=== PATIENT | male | born 1980 | race Two or more races ===

== ENCOUNTER 2025-02-16 13:02 | Inpatient (IN) | payer OTHER, MEDICAID ==
[~2025-02-16] VITALS: Ht 185.4 cm; Wt 91.2 kg
--- NOTE | 2025-02-16 13:07 | ED.PDOC ---
Sickle cell HPI Comments This is a 44 year old male VARSHAA presenting to the ED with chief complaint of body pains. Patient reports that he is currently living in a rehabilitation center after having right leg surgery performed with hardware in place. Patient relays that he has history of Sickle Cell Anemia and believes he is having a Sickle Cell crisis. Patient states that he is experiencing body pains with associated nasal congestion, SOB, and chest pain. Patient denies any N/V, dizziness, headache, fever, or chills. Time Seen by MD: 13:05 Reviewed Notes: Nurses Notes, Campaign Worker Notes, Medications, Allergies Information Source: Patient, Emergency Med Personnel Mode of Arrival: EMS Severity: Moderate Timing: Hours Duration: Since onset Prehospital treatment: None Onset: Spontaneous Symptoms: Pain, Shortness of breath Location of pain: Chest, Abdomen, Back, Extremity History of: Pain, Shortness of breath Past Medical History PAST MEDICAL HISTORY: COPD Past Medical History (Other): Sickle cell, DVT Surgical History (Other): Rt leg surgery Family History Family History: Reviewed,noncontributory to illness Social History Smoker: Cigarettes Alcohol: Denies ETOH Use Drugs: Marijuana Lives In: Home Constitutional: reports: others (Body pains); denies: chills, diaphoresis, fatigue, fever, malaise, sweats, weakness EENTM: reports: nose congestion; denies: blurred vision, double vision, ear bleeding, ear discharge, ear drainage, ear pain, ear ringing, eye pain, eye redness, hearing loss, mouth pain, mouth swelling, nasal discharge, nose bleeding, nose pain, photophobia, tearing, throat pain, throat swelling, voice changes, others Respiratory: reports: shortness of breath; denies: cough, hemoptysis, orthopnea, SOB at rest, SOB with excertion, stridor, wheezing, others Cardiovascular: denies: chest pain, dizzy spells, diaphoresis, Dyspnea on exertion, edema, irregular heart beat, left arm pain, lightheadedness, palpitations, PND, syncope, others Gastrointestinal: denies: abdomen distended, abdominal pain, blood streaked bowels, constipated, diarrhea, dysphagia, difficulty swallowing, hematemesis, melena, nausea, poor appetite, poor fluid intake, rectal bleeding, rectal pain, vomiting, others Genitourinary: denies: burning, dysuria, flank pain, frequency, hematuria, incontinence, penile discharge, penile sore, pain, testicle pain, testicle swelling, urgency, others Neurological: denies: dizziness, fainting, headache, left sided numbness, left sided weakness, numbness, paresthesia, pre-existing deficit, right sided numbness, right sided weakness, seizure, speech problems, tingling, tremors, weakness, others Musculoskeletal: denies: back pain, gout, joint pain, joint swelling, muscle pain, muscle stiffness, neck pain, others Integumetry: denies: bruises, change in color, change in hair/nails, dryness, laceration, lesions, lumps, rash, wounds, others Allergic/Immunocompromised: denies: Difficulty Healing, Frequent Infections, Hives, Itching, others Hematologic/Lymphatic: denies: anemia, blood clots, easy bleeding, easy bruising, swollen glands, others Endocrine: denies: excessive hunger, excessive sweating, excessive thirst, excessive urination, flushing, intolerance to cold, intolerance to heat, unexplained weight gain, unexplained weight loss, others Psychiatric: denies: anxiety, bipolar disorder, depression, hopeless, panic disorder, schizophrenia, sleepless, suicidal, others All Other Systems: Reviewed and Negative Physical Exam General Appearance: Moderate Distress HEENT: Normal ENT Inspection, Pharynx Normal, TMs Normal Neck: Full Range of Motion, Non-Tender, Normal, Normal Inspection Respiratory: Chest Non-Tender, Lungs Clear, No Accessory Muscle Use, No Respiratory Distress, Normal Breath Sounds Cardiovascular: No Edema, No JVD, No Murmur, No Gallop, Normal Peripheral Pulses, Regular Rate/Rhythm Breast Exam: Deferred Gastrointestinal: No Organomegaly, Non Tender, No Pulsatile Mass, Normal Bowel Sounds, Soft Genitalia: Deferred Pelvic: Deferred Rectal: Deferred Extremities: No calf tenderness, Normal capillary refill, Normal inspection, Normal range of motion, Non-tender, No pedal edema Musculoskeletal : Apperance: Normal Neurologic: Alert, store facility technician II-XII nml as Tested, No Motor Deficits, Normal Affect, Normal Mood, No Sensory Deficits Cerebellar Function: NOT DONE Reflexes: NOT DONE Skin: Dry, Normal Color, Warm Peripheral Pulses: 3+ Radial (R), 3+ Radial (L) Lymphatic: No Adenopathy Was a procedure done? Was a procedure done?: No Sickle cell Differential Dx Differential Diagnosis: Vasoocculsive Crisis X-Ray, Labs, Meds, VS Vital Signs Date Time Temp Pulse Resp B/P (MAP) Pulse Ox O2 Delivery O2 Flow Rate FiO2 02/16/25 14:55 75 20 144/86 02/16/25 14:45 75 14 144/86 (105) 95 02/16/25 14:44 75 14 144/86 02/16/25 13:51 98.6 85 18 154/109 (124) 96 98.6 02/16/25 13:51 85 18 96 Room Air 02/16/25 13:49 85 18 154/109 02/16/25 13:05 98.9 85 20 157/122 (134) 98 98.9 Lab Test 02/16/25 13:32 Range/Units White Blood Count 10.8 4.4-10.8 10^3/uL Red Blood Count 5.10 4.5-5.90 10^6/uL Hemoglobin 14.4 13.5-17.5 g/dL Hematocrit 43.1 41.0-53.0 % Mean Corpuscular Volume 84.5 80.0-100.0 fL Mean Corpuscular Hemoglobin 28.2 28.0-32.0 pg Mean Corpuscular Hemoglobin Concent 33.4 32.0-36.0 g/dL Red Cell Distribution Width 16.8 H 11.8-14.3 % Platelet Count 398 140-450 10^3/uL Mean Platelet Volume 7.7 6.9-10.8 fL Neutrophils (%) (Auto) 37.0-80.0 % Lymphocytes (%) (Auto) 10.0-50.0 % Monocytes (%) (Auto) 0.0-12.0 % Eosinophils (%) (Auto) 0.0-7.0 % Basophils (%) (Auto) 0.0-2.0 % Neutrophils # (Auto) 1.6-8.6 10 ^3/uL Lymphocytes # (Auto) 0.4-5.4 10 ^3/uL Monocytes # (Auto) 0-1.3 10 ^3/uL Differential Total Cells Counted 100.0 100 Neutrophils % (Manual) 48 37.0-80.0 Band Neutrophils % (Manual) 0 Lymphocytes % (Manual) 29 10.0-50.0 Monocytes % (Manual) 7 0-12 Eosinophils % (Manual) 16 H 0-7 Basophils % (Manual) 0 0.0-2.0 Metamyelocytes % (manual) 0 Myelocytes % (Manual) 0 Promyelocytes % (Manual) 0 Blast Cells % (Manual) 0 Reactive Lymphocytes 0 Platelet Estimate Adequate Poikilocytosis (manual) Slight Anisocytosis (manual) Slight Tear Drop Cells Few Reticulocyte Count (auto) 2.51 H 0.5-1.5 % Sodium Level 143 136-145 mmol/L Potassium Level 3.7 3.5-5.1 mmol/L Chloride Level 110 H 98-107 mmol/L Carbon Dioxide Level 24 20-31 mmol/L Anion Gap 9 5-15 Blood Urea Nitrogen 8 L 9-23 mg/dL Creatinine 1.21 0.700-1.30 mg/dL Glomerular Filtration Rate Calc 76 >90 mL/min BUN/Creatinine Ratio 6.6 L 10.0-20.0 Serum Glucose 80 74-106 mg/dL Calcium Level 10.2 8.7-10.4 mg/dL Current Medications Medications (Trade) Dose Ordered Sig/Michael Route Start Time Stop Time Status Last Admin Sodium Chloride 1,000 ml @ 1,000 mls/hr Q1H ONCE IV 02/16/25 13:15 02/16/25 14:14 DC 02/16/25 13:40 Sodium Chloride 1,000 ml @ 150 mls/hr Q6H40M ONCE IV 02/16/25 13:15 02/16/25 19:54 02/16/25 13:40 Ondansetron HCl (Zofran) 4 mg ONCE ONCE IV 02/16/25 13:15 02/16/25 13:16 DC 02/16/25 13:50 Hydromorphone HCl (Dilaudid Injection) 0.5 mg ONCE ONCE IV 02/16/25 13:15 02/16/25 13:16 DC 02/16/25 13:49 Ketorolac Tromethamine (Toradol Injection) 30 mg ONCE ONCE IV 02/16/25 13:45 02/16/25 13:46 DC 02/16/25 13:48 Diphenhydramine HCl (Benadryl Injection) 25 mg ONCE ONCE IV 02/16/25 13:45 02/16/25 13:46 DC 02/16/25 13:48 Hydromorphone HCl (Dilaudid Injection) 1 mg ONCE ONCE IV 02/16/25 14:45 02/16/25 14:46 DC 02/16/25 14:55 Sodium Chloride 1,000 ml @ 1,000 mls/hr Q1H ONCE IV 02/16/25 14:45 02/16/25 15:44 02/16/25 14:48 Chest XR: IMPRESSION: 1. No acute cardiopulmonary pathology Patient alert. Complaining of pain all over. Vitals stable. Answering questions. WBC within normal limits. Blood pressure elevated. Possibly from pain. Reticulocyte count elevated. Establish intravenous access. Was given fluids. Was given pain medication. Was given Zofran. Recently had surgery at [facility] for his right lower extremity. Able to move all his extremities. Explained to the patient. Continue monitoring. Images Reviewed?: Images reviewed and evaluated by me Time of 1ST Reevaluation: 14:04 Reevaluation 1ST: Unchanged Patient Education/Counseling: Diagnosis, Treatment Family Education/Counseling: No Family Present Departure 1 Departure Time of Disposition: 15:04 Impression: Primary Impression: Sickle cell crisis Disposition: ADMITTED INPATIENT Admit to: Med Surg Condition: Guarded Critical Care Note Critical Care Time?: Yes (90 min-critical care time only) Critical care comment: Continues to have pain Stability Stability form required: No Heart Score Heart Score: Heart Score Response (Comments) Value History N/A 0 EKG N/A 0 Age N/A 0 Risk Factors N/A 0 Troponin N/A 0 Total 0 I personally scribed for MANSI FUNES MD ([email or web address]) on 02/16/25 at 13:07. Electronically submitted by Francis Abarca ([email or web address]). I personally scribed for MANSI FUNES MD ([email or web address]) on 02/16/25 at 14:21. Electronically submitted by Francis Abarca ([email or web address]). MANSI FUNES MD Feb 16, 2025 13:07
[2025-02-16] MEDS ORDERED: MORPHINE SULFATE 4 MG/ML SYR/VIAL IV ONE (13:15)
[2025-02-16] MEDS: SODIUM CHLORIDE 0.9% 1,000 ML IV ONE ×3 (13:40→14:48)
[2025-02-16] MEDS ORDERED: ACETAMINOPHEN IV 1000 MG/100ML (10MG/ML) IV PRN (13:45)
[2025-02-16] MEDS: KETOROLAC TROMETH 30 MG/ML 1ML VIAL IV ONE (13:48)
[2025-02-16] MEDS: diphenhdrAMINE HCL 50 MG/1 ML VL IV ONE (13:48)
[2025-02-16] MEDS: HYDROmorphone HCL 2 MG/ML VL/or syr IV ONE ×4 (13:49→16:42)
[2025-02-16] MEDS: ONDANSETRON HCL 4 MG/2 ML VIAL IV ONE ×2 (13:50→16:42)
--- NOTE | 2025-02-16 13:51 | DVH ---
X-ray portable chest CLINICAL INDICATION: sob FINDINGS: Heart size is normal. No infiltrates or effusions. No bony thoracic abnormalities. IMPRESSION: 1. No acute cardiopulmonary pathology
[2025-02-16 13:58] LABS: Hematocrit 43.1 % (41.0-53.0); Hemoglobin 14.4 g/dL (13.5-17.5); Mean Corpuscular Hemoglobin 28.2 pg (28.0-32.0); Mean Corpuscular Volume 84.5 fL (80.0-100.0)
[2025-02-16 14:00] LABS: Potassium 3.7 mmol/L (3.5-5.1); Sodium 143 mmol/L (136-145)
[2025-02-16 14:01] LABS: Anion Gap 9 (5-15); Calcium 10.2 mg/dL (8.7-10.4); Carbon Dioxide 24 mmol/L (20-31)
[2025-02-16 14:02] LABS: Chloride 110 mmol/L (98-107)
[2025-02-16 14:06] LABS: BUN/Creatinine Ratio 6.6 (10.0-20.0); Glucose 80 mg/dL (74-106)
[2025-02-16 14:08] LABS: Blood Urea Nitrogen 8 mg/dL (9-23)
[2025-02-16 14:13] LABS: Anisocytosis Slight; Total Cells Counted 100.0 (100)
[2025-02-16 14:14] LABS: Tear Drop Cells FEW
[2025-02-16] MEDS: ONDANSETRON HCL 4 MG/2 ML VIAL ONE (16:39)
[2025-02-16] MEDS ORDERED: ONDANSETRON HCL 4 MG/2 ML VIAL IV PRN ×2 (17:30→19:00)
[2025-02-16] MEDS ORDERED: HYDROmorphone HCL 2 MG/ML VL/or syr IV SCH (18:00)
--- NOTE | 2025-02-16 18:49 | DVHHP2 ---
Admitting Diagnosis: Sickle cell crisis History of Present Illness This is a 44 year old male CARLOS presenting to the ED with chief complaint of body pains. Patient reports that he is currently living in a rehabilitation center after having right leg surgery performed with hardware in place. Patient relays that he has history of Sickle Cell Anemia and believes he is having a Sickle Cell crisis. Patient states that he is experiencing body pains with associated nasal congestion, SOB, and chest pain. Patient denies any N/V, dizziness, headache, fever, or chills. PAST MEDICAL HISTORY: COPD Past Medical History (Other): Sickle cell, DVT Surgical History (Other): Rt leg surgery Family History Family History: Reviewed,noncontributory to illness Social History Smoker: Cigarettes Alcohol: Denies ETOH Use Drugs: Marijuana Lives In: Home Allergies: Coded Allergies: Morphine (Verified Allergy, Unknown, 02/16/25) Current Medications Current Medications Medications (Trade) Dose Ordered Sig/Michael Route PRN Reason Start Time Stop Time Status Last Admin Acetaminophen (Ofirmev) 1,000 mg [id number] PRN IV PAIN SCALE 1-3 OR TEMP>100.4 02/16/25 13:45 02/16/25 13:46 DC Hydromorphone HCl (Dilaudid Injection) 2 mg Q2HR IV 02/16/25 18:00 02/16/25 17:41 DC Ondansetron HCl (Zofran) 4 mg Q4HPRN PRN IV NAUSEA / VOMITING 02/16/25 17:30 Diphenhydramine HCl (Benadryl Injection) 25 mg Q6HPRN PRN IV FOR ITCHING 02/16/25 17:30 Hydromorphone HCl (Dilaudid Injection) 2 mg Q2HR IV 02/16/25 18:42 Vital Signs Vital Signs Date Time Temp Pulse Resp B/P (MAP) Pulse Ox O2 Delivery O2 Flow Rate FiO2 02/16/25 17:28 83 12 147/91 02/16/25 17:27 96 02/16/25 15:36 98.4 98.4 02/16/25 13:51 Room Air Physical Exam gen - 44 y.o. man, lying in bed with scratching HEENT: AT/NC Heart: RRR Lung: CTA b/l Abd: soft, non-tender, non-distended Msk: no edema or cyanosis Neuro: Aox3, no focal deficit SEPSIS Sepsis Screen Date sepsis recognized/suspect: Feb 16, 2025 Time Sepsis recognized/suspect: 1309 Recent Procedure: No On Antibiotic Therapy: No Respiratory Rate >20: No Heart Rate >90: No Temp<36 C (96.8 F) or >38.3 C: No SBP <90 or MAP <65 mmHG: No New Acute Mental Status Change: No Is the patient on CPAP, BIPAP,: No Physician Orders Chest Portable (02/16/25 13:04) Urinalysis (02/16/25 13:04) Sodium Chloride 0.9% (02/16/25 13:15) Saline Lock (02/16/25 13:24) Ondansetron Hcl (Zofran) (02/16/25 17:30) Diphenhdramine Injection (Benadryl Injec (02/16/25 17:30) Hydromorphone Injection (Dilaudid Inject (02/16/25 18:42) Drug Screen (02/16/25 18:38) Vital Signs Date Time Temp Pulse Resp B/P (MAP) Pulse Ox O2 Delivery O2 Flow Rate FiO2 02/16/25 17:28 83 12 147/91 02/16/25 17:27 83 12 147/91 (109) 96 02/16/25 16:42 62 25 167/104 02/16/25 15:36 98.4 74 12 123/67 (85) 99 98.4 02/16/25 15:35 74 12 123/67 02/16/25 14:55 75 20 144/86 02/16/25 14:45 75 14 144/86 (105) 95 02/16/25 14:44 75 14 144/86 02/16/25 13:51 98.6 85 18 154/109 (124) 96 98.6 02/16/25 13:51 85 18 96 Room Air 02/16/25 13:49 85 18 154/109 02/16/25 13:05 98.9 85 20 157/122 (134) 98 98.9 Laboratory Tests Test 02/16/25 13:32 White Blood Count 10.8 10^3/uL (4.4-10.8) Medications Medications Dose Ordered Sig/Michael Route Start Time Stop Time Status Last Admin Dose Admin Diphenhydramine HCl 25 mg ONCE ONCE IV 02/16/25 13:45 02/16/25 13:46 DC 02/16/25 13:48 Hydromorphone HCl 0.5 mg ONCE ONCE IV 02/16/25 13:15 02/16/25 13:16 DC 02/16/25 13:49 Hydromorphone HCl 1 mg ONCE ONCE IV 02/16/25 14:45 02/16/25 14:46 DC 02/16/25 14:55 Hydromorphone HCl 3 mg ONCE ONCE IV 02/16/25 16:45 02/16/25 16:46 DC 02/16/25 16:42 Ketorolac Tromethamine 30 mg ONCE ONCE IV 02/16/25 13:45 02/16/25 13:46 DC 02/16/25 13:48 Ondansetron HCl 4 mg ONCE ONCE IV 02/16/25 13:15 02/16/25 13:16 DC 02/16/25 13:50 Ondansetron HCl 4 mg ONCE ONCE IV 02/16/25 16:45 02/16/25 16:46 DC 02/16/25 16:42 Sodium Chloride 1,000 ml @ 150 mls/hr Q6H40M ONCE IV 02/16/25 13:15 02/16/25 19:54 02/16/25 13:40 Sodium Chloride 1,000 ml @ 1,000 mls/hr Q1H ONCE IV 02/16/25 13:15 02/16/25 14:14 DC 02/16/25 13:40 Sodium Chloride 1,000 ml @ 1,000 mls/hr Q1H ONCE IV 02/16/25 14:45 02/16/25 15:44 DC 02/16/25 14:48 Results Labs Test 02/16/25 13:32 Range/Units White Blood Count 10.8 4.4-10.8 10^3/uL Red Blood Count 5.10 4.5-5.90 10^6/uL Hemoglobin 14.4 13.5-17.5 g/dL Hematocrit 43.1 41.0-53.0 % Mean Corpuscular Volume 84.5 80.0-100.0 fL Mean Corpuscular Hemoglobin 28.2 28.0-32.0 pg Mean Corpuscular Hemoglobin Concent 33.4 32.0-36.0 g/dL Red Cell Distribution Width 16.8 H 11.8-14.3 % Platelet Count 398 140-450 10^3/uL Mean Platelet Volume 7.7 6.9-10.8 fL Neutrophils (%) (Auto) 37.0-80.0 % Lymphocytes (%) (Auto) 10.0-50.0 % Monocytes (%) (Auto) 0.0-12.0 % Eosinophils (%) (Auto) 0.0-7.0 % Basophils (%) (Auto) 0.0-2.0 % Neutrophils # (Auto) 1.6-8.6 10 ^3/uL Lymphocytes # (Auto) 0.4-5.4 10 ^3/uL Monocytes # (Auto) 0-1.3 10 ^3/uL Differential Total Cells Counted 100.0 100 Neutrophils % (Manual) 48 37.0-80.0 Band Neutrophils % (Manual) 0 Lymphocytes % (Manual) 29 10.0-50.0 Monocytes % (Manual) 7 0-12 Eosinophils % (Manual) 16 H 0-7 Basophils % (Manual) 0 0.0-2.0 Metamyelocytes % (manual) 0 Myelocytes % (Manual) 0 Promyelocytes % (Manual) 0 Blast Cells % (Manual) 0 Reactive Lymphocytes 0 Platelet Estimate Adequate Poikilocytosis (manual) Slight Anisocytosis (manual) Slight Tear Drop Cells Few Reticulocyte Count (auto) 2.51 H 0.5-1.5 % Sodium Level 143 136-145 mmol/L Potassium Level 3.7 3.5-5.1 mmol/L Chloride Level 110 H 98-107 mmol/L Carbon Dioxide Level 24 20-31 mmol/L Anion Gap 9 5-15 Blood Urea Nitrogen 8 L 9-23 mg/dL Creatinine 1.21 0.700-1.30 mg/dL Glomerular Filtration Rate Calc 76 >90 mL/min BUN/Creatinine Ratio 6.6 L 10.0-20.0 Serum Glucose 80 74-106 mg/dL Calcium Level 10.2 8.7-10.4 mg/dL Primary Diagnosis Sickle cell crisis Eosinophilia Plan pt states he has diffuse pain. vss, no tachycardia, no left shifts check ua for eosinophilia diffuse scratch likely due to elevated eosinophilia check urine drug study ivf pain control reticulocyte count at 2.5% trend reticulocyte count, crp, procal pain control anti-ematic full code lovenox for dvt ppx no gi ppx needed Plan discussed with: Patient Problems List: (1) Sickle cell crisis Status: Acute Date of Service: Feb 16, 2025 Billing Provider: ACE ROYAL MD Common Visit Codes: [id number] INP/OBS CARE (MOD) ACE ROYAL MD Feb 16, 2025 18:49
[2025-02-16] MEDS ORDERED: HYDROcodone-ACET 5/325MG TAB PO PRN (19:00)
[2025-02-16] MEDS ORDERED: ACETAMINOPHEN 325 MG TAB PO PRN (19:00)
[2025-02-16] MEDS ORDERED: DOCUSATE SOD 100 MG CAP PO PRN (19:00)
[2025-02-16] MEDS ORDERED: HYDROmorphone HCL 2 MG/ML VL/or syr IV PRN (19:00)
[2025-02-16] MEDS: HYDROmorphone HCL 2 MG/ML VL/or syr IV SCH ×2 (21:00→23:17)
[2025-02-16] MEDS: diphenhdrAMINE HCL 50 MG/1 ML VL IV PRN (21:08)
[2025-02-16] MEDS: LACTATED RINGER'S 1,000 ML IV ONE (21:17)
[2025-02-16] MEDS: SODIUM CHLOR 0.9% PF (SALINE LOCK) 10ML VIAL/SYR IV SCH (22:31)
[2025-02-16 23:01] VITALS: BP 140/89; PULSE 66; RESP 18; TEMP 97.7; O2SAT 95
[2025-02-17] MEDS: diphenhdrAMINE HCL 50 MG/1 ML VL IV PRN ×3 (00:35→22:58)
[2025-02-17 02:19] VITALS: BP 140/89; PULSE 60; RESP 18; TEMP 97.7; O2SAT 95
[2025-02-17 08:45] VITALS: BP 128/90; PULSE 61; RESP 18; TEMP 98.1; O2SAT 95
[2025-02-17] MEDS: FOLIC ACID 1 MG TAB PO SCH (09:48)
[2025-02-17] MEDS: ENOXAPARIN SOD 40 MG/0.4 ML SYRINGE SC SCH (09:48)
[2025-02-17] MEDS: SODIUM CHLORIDE 0.9% 1,000 ML IV SCH ×2 (09:52→11:45)
[2025-02-17 10:12] LABS: Alanine Aminotransferase 25 U/L (7-40); Albumin 4.4 g/dL (3.2-4.8); Alkaline Phosphatase 79 U/L (46-116); Anion Gap 11 (5-15); BUN/Creatinine Ratio 5.3 (10.0-20.0); Calcium 9.4 mg/dL (8.7-10.4); Magnesium 2.0 mg/dL (1.6-2.6); Potassium 4.3 mmol/L (3.5-5.1); Sodium 141 mmol/L (136-145); Total Protein 6.5 g/dL (5.7-8.2)
[2025-02-17 10:13] LABS: Bilirubin, Total 1.6 mg/dL (0.2-1.0); Blood Urea Nitrogen 6 mg/dL (9-23); Carbon Dioxide 19 mmol/L (20-31); Chloride 111 mmol/L (98-107); Glucose 74 mg/dL (74-106)
[2025-02-17] MEDS ORDERED: ACETAMINOPHEN 325 MG TAB PO SCH (12:00)
[2025-02-17] MEDS ORDERED: hydrOXYzine 25 MG TAB or CAP PO PRN (12:00)
[2025-02-17 13:00] VITALS: BP 155/108; PULSE 86; RESP 18; TEMP 98.6; O2SAT 97
[2025-02-17] MEDS ORDERED: HYDROcodone-ACET 10/325MG TAB PO PRN (14:00)
[2025-02-17] MEDS: ACETAMINOPHEN 500 MG TAB or CAP PO SCH (18:00)
[2025-02-17] MEDS ORDERED: diphenhdrAMINE HCL 50 MG/1 ML VL IV SCH (18:00)
[2025-02-17] MEDS ORDERED: diphenhdrAMINE HCL 25 MG CAP PO SCH (18:00)
--- NOTE | 2025-02-17 19:07 | DVHPNRES ---
Progress Note Date Seen: Feb 17, 2025 Resident Creating Document: RULA HORNER RESIDENT Has the PT tested + for MRSA If YES, has PT been informed?: No Medical Necessity Reason Pt with a Central, PICC or Fol: No Subjective Review of Systems 02/17/25 44-year-old male with a history of sickle cell disease (diagnosed at age 5), COPD, asthma, history of splenectomy, right leg orthopedic surgery, and lipoma excisions, presenting with severe generalized bone pain (10/10), especially in lower extremities and hands, associated with allodynia (extreme sensitivity to touch), diffuse body aches, and pruritus. Patient reports inability to drink water or eat for 4 days, last bowel movement yesterday. Denies nausea, vomiting, headache, dizziness, chills, or fever. Reports shortness of breath and nasal congestion. States last crisis was in June (admitted at [facility]). He is verbally abusive and non-compliant with treatment. Smokes cigarettes daily; uses marijuana; denies alcohol use. Todays Progress & Relevant Findings * Pain remains severe, requiring IV opioids; patient refused some oral medications. * Vitals: BP elevated (161/98), HR fluctuating (5669), afebrile, SpO2 97% on room air. * Labs: Hgb 14.4, Reticulocyte 2.51?, LDH 430?, Total bilirubin 1.6?, AST 48? consistent with hemolysis. WBC 10.8, Platelets 398. Electrolytes stable, Cr 1.1. * Urine drug screen: positive for cannabinoids. * Imaging: CXR No acute cardiopulmonary pathology. * I&O: Good urine output; intake limited due to poor oral intake. * Medications: IV fluids, IV hydromorphone, enoxaparin, diphenhydramine for itching, folic acid, steroids, pain management medications .Review of Systems (ROS) * Constitutional: Severe pain, poor oral intake, no fever or chills. * HEENT: Nasal congestion, no headache or vision changes. * Respiratory: Shortness of breath, no cough. * Cardiac: Chest discomfort, no palpitations. * GI: No nausea/vomiting, last BM yesterday. * : Adequate urine output. * MSK: Diffuse bone pain, lower extremity tenderness. * Skin: Pruritus, no new rashes. * Neuro: No focal deficits, alert but verbally aggressive. * Psych: Non-compliant, verbally abusive behavior. Objective vital signs Vital Sign Date Time Temp Pulse Resp B/P (MAP) Pulse Ox O2 Delivery O2 Flow Rate FiO2 02/17/25 18:10 63 16 137/82 02/17/25 13:00 98.6 97 98.6 02/17/25 08:00 Room Air* 0 21 Total Intake and Output 02/16/25 02/16/25 02/17/25 15:00 23:00 07:00 Intake Total 300 ml 105 ml Balance 300 ml 105 ml medications Current Medications Medications Dose Ordered Sig/Michael Route Start Time Stop Time Status Last Admin Dose Admin Sodium Chloride 10 ml Q8HR IV 02/16/25 22:00 02/17/25 14:13 10 ML Docusate Sodium 100 mg BIDPRN PRN PO 02/16/25 19:00 Ondansetron HCl 4 mg Q4HP PRN IV 02/16/25 19:00 Enoxaparin Sodium 40 mg DAILY SC 02/17/25 10:00 02/17/25 09:48 40 MG Hydromorphone HCl 2 mg Q2HR IV 02/16/25 22:00 02/17/25 18:10 2 MG Folic Acid 1 mg DAILY PO 02/17/25 10:00 02/17/25 09:48 1 MG Sodium Chloride 1,000 ml @ 100 mls/hr Q10H IV 02/17/25 11:45 02/17/25 11:45 100 MLS/HR Acetaminophen/ Hydrocodone Bitart 1 tab Q4HP PRN PO 02/17/25 14:00 Ibuprofen 600 mg BID PO 02/17/25 22:00 Oxycodone HCl 20 mg Q12HR PO 02/17/25 12:00 02/17/25 14:11 20 MG Prednisone 40 mg DAILY PO 02/18/25 10:00 Acetaminophen 1,000 mg Q6HP PO 02/17/25 18:00 Diphenhydramine HCl 12.5 mg Q6HP PRN IV 02/17/25 13:30 02/17/25 18:53 12.5 MG Examination * General: Alert, in distress due to pain, verbally abusive. * HEENT: No icterus or lymphadenopathy. * CV: Regular rhythm, no murmurs. * Resp: Clear lungs, no wheezing or crackles. * Abdomen: Soft, non-tender. * MSK: Diffuse tenderness to palpation over long bones, hands, and legs. * Skin: Multiple surgical scars, no active ulcerations. * Neuro: No focal deficits. * Psych: Irritable, uncooperative. laboratory and microbiology Laboratory Tests 02/17/25 09:18 02/16/25 13:32 Test 02/17/25 09:18 Range/Units Serum Glucose 74 74-106 mg/dL Problem List/Assessment/Plan Problem List/Assessment/Plan 1. Sickle Cell Crisis (vaso-occlusive crisis) Severe pain, hemolysis markers (Elevated LDH, retics, bilirubin), diffuse bone pain. 2. Sickle Cell Disease Acute Pain Crisis Requiring IV opioids; morphine allergy (avoid). 1. Pruritus Likely secondary to opioids or sickle cell crisis. 2. Poor Oral Intake / Dehydration Risk Minimal intake for 4 days. 3. COPD / Asthma Stable, no current exacerbation. 4. Hypertension 5. Behavioral Issues Non-compliance, verbal abuse affecting care. 6. Tobacco Use Disorder Ongoing risk. 7. Marijuana Use Positive urine screen. Plan [facility] * Continue IV fluids (NS at 100 mL/hr) to maintain hydration. * Continue folic acid supplementation. * Monitor daily CBC, CMP, LDH, Reticulocyte count. * Prednisolone 40 mg PO daily * Pain control with IV hydromorphone (avoid morphine due to allergy). * Consider hematology consult for exchange transfusion if worsening. Pain Management * IV Hydromorphone Q2H PRN, stepwise transition to oral oxycodone when pain improves. * Adjunct: Acetaminophen scheduled, ibuprofen if tolerated. * Avoid morphine due to allergy. 1. Diphenhydramine IV 25 q4H PRN for itching. Respiratory (COPD/Asthma) * Monitor for hypoxia, provide O2 if SpO2 < 92%. * PRN inhalers if bronchospasm. GI/Nutrition * Encourage oral intake; continue IV fluids until intake improves. * Stool softeners (docusate) to prevent opioid-induced constipation. Prophylaxis * Enoxaparin 40 mg SQ daily for DVT prophylaxis. * PPI if high opioid/steroid use continues. Behavioral / Social * Limit staff exposure; security if needed. * Document non-compliance and abusive behavior. Additional * Console Operator on smoking cessation and marijuana use (when patient cooperative). * Consider psychiatry if behavior escalates. Plan discussed with: Patient My Orders My Orders Orders - RULA HORNER RESIDENT Procedure Category Date Status Time Maldonado Stain Slide LAB 02/17/25 Logged 09:09 Haptoglobin LAB 02/17/25 Logged 09:09 Folic Acid Tablet PHA 02/17/25 In Process 10:00 Sodium Chloride 0.9% PHA 02/17/25 In Process 11:45 Hydrocodone-Acet PHA 02/17/25 In Process 10/325mg Tab (Peck 14:00 Ibuprofen Tablet PHA 02/17/25 In Process (Motrin Tablet) 22:00 Oxycodone Er Tablet PHA 02/17/25 In Process (Oxycontin Er Tablet 12:00 Prednisone Tablet PHA 02/18/25 In Process 10:00 Diphenhdramine PHA 02/17/25 In Process Injection (Benadryl 13:30 Complete Blood Count LAB 02/18/25 Verified 04:00 Comprehensive LAB 02/18/25 Verified Metabolic Panel 04:00 Date of Service: Feb 17, 2025 Billing Provider: ENA COSTA MD Common Visit Codes: [id number] INP/OBS CARE(HIGH) RULA HORNER RESIDENT Feb 17, 2025 19:07 ENA COSTA MD Feb 20, 2025 01:51
[2025-02-17 20:00] VITALS: PULSE 65; RESP 18; O2SAT 96
[2025-02-17 21:00] VITALS: BP 119/79; PULSE 84; RESP 18; TEMP 98.3; O2SAT 97
[2025-02-17] MEDS: IBUPROFEN 600 MG TAB PO SCH (22:01)
[2025-02-18] VITALS (9 sets, daily range): BP systolic 126–177; BP diastolic 64–118; PULSE 18–78; RESP 16–69; TEMP 97.6–98.2; O2SAT 90–100
[2025-02-18 08:44] LABS: Urine Protein, UAD Negative (Negative)
[2025-02-18 09:02] LABS: Opiate Scree,Urine Neg (NEGATIVE)
[2025-02-18 09:03] LABS: Amphetamine Screen, Urine Neg (NEGATIVE); Barbiturate Scree,Urine Neg (NEGATIVE); Benzodiazephine Screen, Urine Neg (NEGATIVE); Cannabinoid Screen, Urine Pos (NEGATIVE); Cocaine Screen, Urine Neg (NEGATIVE); Phencyclidine Screen, Urine Neg (NEGATIVE)
[2025-02-18] MEDS: predniSONE 20 MG TAB PO SCH (09:39)
[2025-02-18] MEDS: AZITHROMYCIN 500MG/ 250ML 250 ML IV ONE (10:30)
[2025-02-18] MEDS: PANTOPRAZOLE 40 MG/10 ML VIAL INJ IV SCH (10:45)
[2025-02-18] MEDS: ALBUTEROL SULF 2.5 MG/0.5ML(0.5%) NEB SOLN NEB SCH (12:30)
[2025-02-18] MEDS: IPRATROPIUM BROM 0.5 MG/2.5ML INH SOL NEB SCH (12:30)
[2025-02-18] MEDS ORDERED: SODIUM CHLORIDE 0.9% 1,000 ML IV SCH (13:15)
[2025-02-18 13:26] LABS: COVID19 ANTIGEN SOFIA FIA NEGATIVE (NEGATIVE)
[2025-02-18] MEDS ORDERED: hydrALAZINE HCL 20 MG/ML VL IV PRN (13:30)
--- NOTE | 2025-02-18 13:55 | DVH ---
CHEST RADIOGRAPH Indication: F/U ACUTE CHEST SYNDROME Technique: Single frontal view of the chest was obtained Comparison: XY CHEST PORTABLE on DOS: 02/16/25 FINDINGS: Lines and Tubes: None Lungs: No focal consolidation. Pleura: No effusion. No pneumothorax. Cardiomediastinal contours: Unremarkable Bones: No acute osseous abnormality. IMPRESSION: No acute cardiopulmonary disease.
[2025-02-18] MEDS: HYDROmorphone HCL 2 MG/ML VL/or syr IV PRN (14:06)
--- NOTE | 2025-02-18 14:17 | DVHPNRES ---
Progress Note Date Seen: Feb 18, 2025 Resident Creating Document: SEGUN OCONNOR RESIDENT Has the PT tested + for MRSA If YES, has PT been informed?: No Medical Necessity Reason Pt with a Central, PICC or Fol: No Subjective Review of Systems This is a 44-year-old male with a history of sickle cell disease since [age] years old, COPD, asthma, history of splenectomy, right leg orthopedic surgery, and lipoma excisions, presenting with severe generalized bone pain (10/10), especially in lower extremities and hands,, diffuse body aches, and pruritus. Patient reports inability to drink water or eat for 4 days, last bowel movement yesterday. Denies nausea, vomiting, headache, dizziness, chills, or fever. Reports shortness of breath and nasal congestion. States last crisis was in June (admitted at [place]). He is verbally abusive and non-compliant with treatment. Smokes cigarettes daily; uses marijuana; denies alcohol use. Patient seen at bedside. Patient appears in severe distress, alert x3, he complains of lower back pain 8/10 in intensity, and pain in his lower extremities, he is on 3 L oxygen but does not use home oxygen, reports of shortness of breath, is coughing with productive sputum which is yellow and blood-stained. Azithromycin, ipratropium, albuterol were given. COVID, influenza tests were negative. Repeat chest x-ray shows no acute findings. Patient's blood pressure was 177/118 and patient was given Procardia, and hydralazine 10 mg IV q.6 p.r.n. monitoring daily CBC, CMP. Objective vital signs Vital Sign Date Time Temp Pulse Resp B/P (MAP) Pulse Ox O2 Delivery O2 Flow Rate FiO2 02/18/25 12:49 98.2 62 17 177/118 (137) 91 98.2 02/18/25 10:44 21 02/18/25 08:00 Room Air* 0 Total Intake and Output 02/17/25 02/17/25 02/18/25 15:00 23:00 07:00 Intake Total 480 ml 4100 ml Output Total 600 ml 2600 ml Balance -120 ml 1500 ml medications Current Medications Medications Dose Ordered Sig/Michael Route Start Time Stop Time Status Last Admin Dose Admin Sodium Chloride 10 ml Q8HR IV 02/16/25 22:00 02/18/25 05:30 10 ML Docusate Sodium 100 mg BIDPRN PRN PO 02/16/25 19:00 Ondansetron HCl 4 mg Q4HP PRN IV 02/16/25 19:00 Enoxaparin Sodium 40 mg DAILY SC 02/17/25 10:00 02/17/25 09:48 40 MG Folic Acid 1 mg DAILY PO 02/17/25 10:00 02/18/25 09:39 1 MG Ibuprofen 600 mg BID PO 02/17/25 22:00 02/17/25 22:01 600 MG Oxycodone HCl 20 mg Q12HR PO 02/17/25 12:00 02/18/25 09:40 20 MG Prednisone 40 mg DAILY PO 02/18/25 10:00 02/18/25 09:39 40 MG Acetaminophen 1,000 mg Q6HP PO 02/17/25 18:00 02/18/25 05:58 1,000 MG Diphenhydramine HCl 25 mg Q4HP PRN IV 02/17/25 21:45 02/18/25 12:13 25 MG Azithromycin 250 ml @ 125 mls/hr DAILY IV 02/19/25 10:00 Ipratropium [place] 0.5 mg Q6HR NEB 02/18/25 12:00 Albuterol 2.5 mg Q6HR NEB 02/18/25 12:00 Pantoprazole Sodium 40 mg DAILY IV 02/18/25 10:45 Hydromorphone HCl 2 mg Q2HR PRN IV 02/18/25 13:00 Hydralazine HCl 10 mg Q6HP PRN IV 02/18/25 13:30 Nifedipine 30 mg DAILY PO 02/19/25 10:00 Acetaminophen/ Hydrocodone Bitart 1 tab Q4HP PRN PO 02/18/25 13:45 Examination General: Patient alert and oriented in person, place and time. Patient following commands. HEENT: Normocephalic, atraumatic, moist mucous membranes Respiratory/pulmonary: bilateral wheezing heard on auscultation Cardiovascular: Normal heart sounds S1 and S2 with no associated murmurs Abdomen: Abdomen nondistended, there is no pain to palpation in any of the abdominal quadrants, no palpable masses. Extremities: There is no peripheral edema present at the lower extremities. Peripheral Pulses: 3+ Radial (R). 3+ Radial (L). 3+ Dorsalis pedis (R). 3+ Dorsalis pedis(L) Skin: No rashes or pruritus, there is no sacral edema present at this time. Neurological: Intact cranial nerves with no focal neurologic deficits laboratory and microbiology Laboratory Tests 02/17/25 09:18 02/16/25 13:32 Test 02/17/25 09:18 Range/Units Serum Glucose 74 74-106 mg/dL Problem List/Assessment/Plan Problem List/Assessment/Plan # Acute Sickle Cell Crisis (vaso-occlusive crisis) # Sickle Cell Disease # Acute Pain Crisis - IV fluids - Continue Folic acid - Prednisone 40 mg PO daily - IV Hydromorphone Q2H PRN, Acetaminophen scheduled, ibuprofen if tolerated. - monitor Labs - increased reticulocyte count # acute hypoxic respiratory failure # acute exacerbation of COPD - patient is on 3 L oxygen - chest x-ray shows no acute findings - IV azithromycin - ipratropium 0.5mg q.6 - albuterol 2.5 mg q.6 - prednisone 40 mg p.o. daily - COVID and influenza tests were negative # Pruritus Likely secondary to opioids or sickle cell crisis. - Diphenhydramine IV 25 q4H PRN - Prednisolone 40 mg PO daily # Uncontrolled Hypertension - Procardia, and hydralazine 10 mg IV q.6 p.r.n. given # Polysubstance abuse disorder # Cannabis use disorder - patient was counseled on cessation of smoking and marijuana abuse for over 20 minutes Goals of care discussed with the patient for 27 minutes: Full code Case discussed with Dr. Owens Plan discussed with: Patient My Orders My Orders Orders - SEGUN OCONNOR RESIDENT Procedure Category Date Status Time Lactate Dehydrogenase LAB 02/18/25 Logged 08:10 Reticulocyte Count LAB 02/18/25 Logged 08:10 Communication Order ORDERS 02/18/25 Transmitted 08:12 Azithromycin 500mg/ PHA 02/19/25 In Process 250ml (Zithromax 50 10:00 Ipratropium Medneb PHA 02/18/25 In Process (Atrovent Medneb) 12:00 Albuterol Medneb PHA 02/18/25 In Process (Ventolin Medneb) 12:00 Mrsa Screen EZIO 02/18/25 In Process 11:34 Hydralazine Injection PHA 02/18/25 In Process (Apresoline Inject 13:30 Nifedipine Er PHA 02/19/25 In Process (Procardia Xl 10:00 Date of Service: Feb 18, 2025 Billing Provider: ENA COSTA MD Common Visit Codes: [id number] INP/OBS CARE(HIGH) SEGUN OCONNOR RESIDENT Feb 18, 2025 14:16 ENA COSTA MD Feb 20, 2025 01:56
[2025-02-18 14:58] LABS: Hematocrit 36.6 % (41.0-53.0); Hemoglobin 12.6 g/dL (13.5-17.5); Mean Corpuscular Hemoglobin 28.4 pg (28.0-32.0); Mean Corpuscular Volume 82.5 fL (80.0-100.0)
[2025-02-18 15:17] LABS: Alanine Aminotransferase 32 U/L (7-40); Albumin 4.7 g/dL (3.2-4.8); Alkaline Phosphatase 88 U/L (46-116); Anion Gap 8 (5-15); BUN/Creatinine Ratio 8.5 (10.0-20.0); Calcium 9.8 mg/dL (8.7-10.4); Carbon Dioxide 27 mmol/L (20-31); Chloride 105 mmol/L (98-107); Magnesium 1.8 mg/dL (1.6-2.6); Potassium 4.5 mmol/L (3.5-5.1); Sodium 140 mmol/L (136-145); Total Protein 6.7 g/dL (5.7-8.2)
[2025-02-18 15:20] LABS: Bilirubin, Total 2.6 mg/dL (0.2-1.0); Blood Urea Nitrogen 8 mg/dL (9-23); Glucose 131 mg/dL (74-106)
[2025-02-18 15:42] LABS: Total Cells Counted 100.0 (100)
[2025-02-18 15:43] LABS: Anisocytosis Slight
[2025-02-18 15:44] LABS: Sickle Cells FEW
[2025-02-19] MEDS: HYDROcodone-ACET 10/325MG TAB PO PRN (03:09)
[2025-02-19 04:42] VITALS: BP 148/103; PULSE 84; RESP 15; TEMP 99; O2SAT 93
[2025-02-19] MEDS ORDERED: AZITHROMYCIN 500MG/ 250ML 250 ML IV SCH ×2 (06:30→10:00)
[2025-02-19 07:09] VITALS: PULSE 74; RESP 16; O2SAT 95
[2025-02-19 07:15] VITALS: PULSE 85; RESP 16; O2SAT 100
[2025-02-19 09:00] VITALS: BP 143/96; PULSE 86; RESP 17; TEMP 97.8; O2SAT 98
[2025-02-19 10:00] VITALS: O2SAT 98
[2025-02-19 11:29] VITALS: BP 158/100; PULSE 87; RESP 18
[2025-02-19] MEDS ORDERED: NIFE1TAB31 PO (13:24)
[2025-02-19] MEDS ORDERED: DOCU-265 PO (13:24)
[2025-02-19] MEDS ORDERED: FOLI-119 PO (13:24)
--- NOTE | 2025-02-19 13:29 | PRN ---
Misceleneous Note Note Note Patient was seen on Saturday 02/17, patient had incident with nursing being mildly made with giving medications and has started being verbally abusive, on warranted accusations of discrimination. At that time we had discussed with the patient everyone increased pain medications to keep patient comfortable through his sickle cell crisis. we started fluids, continuing hydroxyurea and folate, and increased pain control up to Dilaudid 2 mg q.2h along with alternating IV Ativan for anxiety and itching. Behavior discussion with patient that vivo compliant were disability while putting his health at her primary, discussed with patient's advocate daughter Teresita, and patient was informed that there have been no for the tolerance of threats or verbal abuse towards healthcare workers including nurses takes or any other hospital staff. Patient was comfortable for rest of the day including yesterday. Although yesterday she had again refused multiple therapies and workup and labs and noncompliant with treatment and therapeutic efforts. Today nurses page providers on 02/19, patient again being verbally abusive making threats of recording staff and firing multiple nurses. Given her agreement from 02/17, patient has broken debridement and is a threat to staff while being, we will discharge patient today has refusal of care and abuse/tried towards hospital staff. Plan of care was discussed with nursing, charge nurse. Nubia Owens MD 02/19/2025 NUBIA COSTA MD Feb 19, 2025 13:29
--- NOTE | 2025-02-19 16:21 | DVHDSRES ---
Discharge Summary Date of Admission Resident Creating Document: SEGUN OCONNOR RESIDENT Feb 16, 2025 at 19:00 Date of Discharge: Feb 19, 2025 Admitting Diagnosis # Acute Sickle Cell Crisis Labs/Diagnostic Data: Laboratory Results Test 02/18/25 14:40 02/18/25 11:15 02/18/25 08:45 02/16/25 13:32 White Blood Count 12.4 10^3/uL (4.4-10.8) Red Blood Count 4.43 10^6/uL (4.5-5.90) Hemoglobin 12.6 g/dL (13.5-17.5) Hematocrit 36.6 % (41.0-53.0) Mean Corpuscular Volume 82.5 fL (80.0-100.0) Mean Corpuscular Hemoglobin 28.4 pg (28.0-32.0) Mean Corpuscular Hemoglobin Concent 34.5 g/dL (32.0-36.0) Red Cell Distribution Width 18.0 % (11.8-14.3) Platelet Count 280 10^3/uL (140-450) Mean Platelet Volume 7.7 fL (6.9-10.8) Neutrophils (%) (Auto) % (37.0-80.0) Lymphocytes (%) (Auto) % (10.0-50.0) Monocytes (%) (Auto) % (0.0-12.0) Basophils (%) (Auto) % (0.0-2.0) Neutrophils # (Auto) 10 ^3/uL (1.6-8.6) Lymphocytes # (Auto) 10 ^3/uL (0.4-5.4) Monocytes # (Auto) 10 ^3/uL (0-1.3) Differential Total Cells Counted 100.0 (100) Neutrophils % (Manual) 56 (37.0-80.0) Band Neutrophils % (Manual) 1 Lymphocytes % (Manual) 21 (10.0-50.0) Monocytes % (Manual) 3 (0-12) Eosinophils % (Manual) 19 (0-7) Basophils % (Manual) 0 (0.0-2.0) Metamyelocytes % (manual) 0 Myelocytes % (Manual) 0 Promyelocytes % (Manual) 0 Blast Cells % (Manual) 0 Reactive Lymphocytes 0 Platelet Estimate [place] Large Platelets Few Anisocytosis (manual) Slight Sickle Cells Few Tear Drop Cells Ovalocytes Reticulocyte Count (auto) 3.12 % (0.5-1.5) Sodium Level 140 mmol/L (136-145) Potassium Level 4.5 mmol/L (3.5-5.1) Chloride Level 105 mmol/L (98-107) Carbon Dioxide Level 27 mmol/L (20-31) Anion Gap 8 (5-15) Blood Urea Nitrogen 8 mg/dL (9-23) Creatinine 0.94 mg/dL (0.700-1.30) Glomerular Filtration Rate Calc 103 mL/min (>90) BUN/Creatinine Ratio 8.5 (10.0-20.0) Serum Glucose 131 mg/dL (74-106) Calcium Level 9.8 mg/dL (8.7-10.4) Magnesium Level 1.8 mg/dL (1.6-2.6) Total Bilirubin 2.6 mg/dL (0.2-1.0) Aspartate Amino Transferase (AST) 51 U/L (13-40) Alanine Aminotransferase (ALT) 32 U/L (7-40) Alkaline Phosphatase 88 U/L (46-116) Lactate Dehydrogenase 398 U/L (120-246) Total Protein 6.7 g/dL (5.7-8.2) Albumin 4.7 g/dL (3.2-4.8) Influenza Type A Antigen Negative (Negative) Influenza Type B Antigen Negative (Negative) SARS-CoV-2 Antigen (Rapid) Negative (NEGATIVE) Urine Color Light-yellow (Yellow) Urine Clarity Clear (Clear) Urine pH 5.5 (5.0-9.0) Urine Specific [place] 1.006 (1.001-1.035) Urine Protein Negative (Negative) Urine Ketones Negative (Negative) Urine Blood Negative /uL (Negative) Urine Nitrite Negative (Negative) Urine Bilirubin Negative (Negative) Urine Urobilinogen Normal mg/dL (Negative) Urine Leukocyte Esterase Negative /uL (Negative) Urine RBC None seen /hpf (0 - 3) Urine Microscopic WBC 1 /HPF (0-3) Urine Squamous Epithelial Cells Few /hpf (<5) Urine Bacteria None seen /hpf (None Seen) Urine Glucose Normal mg/dL (Normal) Urine Opiates Screen Neg (NEGATIVE) Urine Fentanyl Screen Neg (NEGATIVE) Urine Barbiturates Screen Neg (NEGATIVE) Urine Phencyclidine Screen Neg (NEGATIVE) Urine Amphetamines Screen Neg (NEGATIVE) Urine Benzodiazepines Screen Neg (NEGATIVE) Urine Cocaine Screen Neg (NEGATIVE) Urine Cannabinoids Screen Pos (NEGATIVE) Eosinophils (%) (Auto) % (0.0-7.0) Poikilocytosis (manual) Slight Other Laboratory Tests 02/18/25 14:40 Brief Hx & Hospital Course: This is a 44-year-old male with a history of sickle cell disease since [age] years old, COPD, asthma, history of splenectomy, right leg orthopedic surgery, and lipoma excisions, presenting with severe generalized bone pain (10/10), especially in lower extremities and hands,, diffuse body aches, and pruritus. Patient reports inability to drink water or eat for 4 days, last bowel movement yesterday. Denies nausea, vomiting, headache, dizziness, chills, or fever. Reports shortness of breath and nasal congestion. States last crisis was in June (admitted at [place]). He is verbally abusive and non-compliant with treatment. Smokes cigarettes daily; uses marijuana; denies alcohol use. Brief Hospital course: Acute sickle cell crisis, sickle cell disease, acute pain crisis and was given IV fluids, folic acid, prednisone 40 mg p.o. daily, IV hydromorphone Q 2 p.r.n., ibuprofen if tolerated, his labs were monitored, his increased reticulocyte count was monitored. He has acute hypoxic respiratory failure, acute exacerbation of COPD, he was on 3 L oxygen, chest x-ray shows no acute findings, IV azithromycin was given, p.m. 0.5 mg q.6, albuterol 2.5 mg q.6, prednisone 40 mg p.o. daily was given. COVID and influenza tests were negative. For his pruritus which was likely secondary to opioids or sickle cell crisis diphenhydramine IV 24 q.4 PRN and prednisone 40 mg p.o. daily were given. For his uncontrolled hypertension cardia and hydralazine 10 mg IV q.6 p.r.n. was given. Patient has polysubstance abuse disorder, and cannabis use disorder and he was counseled on cessation of smoking, drinking, drug abuse. Patient was for discharge and was combative and verbally abusive towards the healthcare workers. Today nurses paged providers on 02/19, patient again being verbally abusive making threats of recording staff and firing multiple nurses. Given his agreement from 02/17, patient has broken agreement and is a threat to staff while being here, we will discharge patient today has refusal of care and abuse towards hospital staff. General: Patient alert and oriented in person, place and time. Patient following commands. HEENT: Normocephalic, atraumatic, moist mucous membranes Respiratory/pulmonary: bilateral wheezing heard on auscultation Cardiovascular: Normal heart sounds S1 and S2 with no associated murmurs Abdomen: Abdomen nondistended, there is no pain to palpation in any of the abdominal quadrants, no palpable masses. Extremities: There is no peripheral edema present at the lower extremities. Peripheral Pulses: 3+ Radial (R). 3+ Radial (L). 3+ Dorsalis pedis (R). 3+ Dorsalis pedis(L) Skin: No rashes or pruritus, there is no sacral edema present at this time. Neurological: Intact cranial nerves with no focal neurologic deficits Operations or Procedures ORDERING PHYSICIAN: WESLEY GRANADOS RESIDENT PROCEDURE(s): CXR1 - CHEST XRAY 1 VIEW REASON: F/U ACUTE CHEST SYNDROME ORDER NUMBER(s): [id number], ACCESSION NUMBER(s): [id number] CHEST RADIOGRAPH Indication: F/U ACUTE CHEST SYNDROME Technique: Single frontal view of the chest was obtained Comparison: XY CHEST PORTABLE on DOS: 02/16/25 FINDINGS: Lines and Tubes: None Lungs: No focal consolidation. Pleura: No effusion. No pneumothorax. Cardiomediastinal contours: Unremarkable Bones: No acute osseous abnormality. IMPRESSION: No acute cardiopulmonary disease. Condition at Discharge: Stable Final Diagnosis/Problems List # Acute Sickle Cell Crisis # Sickle Cell Disease # Acute Pain Crisis # acute hypoxic respiratory failure # acute exacerbation of COPD # Pruritus Likely secondary to opioids or sickle cell crisis. # Uncontrolled Hypertension # Polysubstance abuse disorder # Cannabis use disorder Discharge Disposition: Home Discharge Instruct/Medications Diet: Consistent carbohydrate, Cardiac 2g Na,low cholest Activity: No Restrictions, As Tolerated Follow Up/Referral: follow up with PCP in 1 week Medications: As per EMR Scheduled Folic Acid (Folic Acid), 1 MG PO DAILY Nifedipine (Nifedipine Er), 30 MG PO DAILY Scheduled PRN Docusate Sodium (Docusate Sodium), 100 MG PO BIDPRN PRN Discharge Statement: "Patient was advised to return to the ER or call 911 if any headaches, dizziness, shortness of breath, chest pain, abdominal pain, bleeding, fevers, or worsening of medical condition. Patient was counseled about treatment plan, medications, possible side effects, patientverbalized understanding. All questions were answered to the best of my ability. This discharge took greater then 30 minutes in planning, reviewing documentation, counseling the patient, and discussing with other team members." ASSESSMENT ASSESSMENT Assessment Sickel cell crisis Date of Service: Feb 19, 2025 Billing Provider: ENA COSTA MD Common Visit Codes: [id number] DISCH DAY >30min SEGUN OCONNOR Feb 19, 2025 16:21 ENA COSTA MD Feb 20, 2025 22:01
== END 2025-02-19 14:10 | disposition home or self-care (01) | DRG 811 ==
LOC: EDBD 13:02 → ER 13:02 → OVERFLOW 19:00 → CENTRAL 23:01
PROVIDERS: ADMIT Student in an Organized Health Care Education/Training Program; ATTEND Student in an Organized Health Care Education/Training Program
DX: D57.00 Hb-SS disease with crisis, unspecified (principal); J96.01 Acute respiratory failure with hypoxia; J44.1 Chronic obstructive pulmonary disease with (acute) exacerbation; E86.0 Dehydration; Z20.822 Contact with and (suspected) exposure to COVID-19; I10 Essential (primary) hypertension; F19.10 Other psychoactive substance abuse, uncomplicated; F17.210 Nicotine dependence, cigarettes, uncomplicated; D72.10 Eosinophilia, unspecified; L29.9 Pruritus, unspecified; Z88.5 Allergy status to narcotic agent; Z90.81 Acquired absence of spleen; Z79.899 Other long term (current) drug therapy
CPT/HCPCS: 36415; 71045; 80048; 80053; 80307; 81001; 83615; 83735; 85007; 85027; 85045; 87081; 87426; 87804; 94640; 96361; 96374; 99291; 99292; G0378; J1885; J2405